=== PATIENT | female | born 1935 | race Caucasian/White ===

== ENCOUNTER 2017-07-04 15:28 | Inpatient (IN) | payer MEDICARE ==
[2017-07-04] MEDS ORDERED: RX INFO: IV CONTRAST WAS GIVEN 1 EACH MISC MISCELLANE PRN (15:58)
[2017-07-04] MEDS ORDERED: SODIUM CHLORIDE 0.9% 1,000 ML IV STA ×2 (15:58)
[2017-07-04] MEDS ORDERED: METOCLOPRAMIDE 5 MG/ML 2 ML VIAL IVP STA (15:58)
[2017-07-04] MEDS ORDERED: PANTOPRAZOLE 40 MG/10 ML VIAL IVP STA (15:58)
[2017-07-04] MEDS ORDERED: MECLIZINE 12.5 MG TAB PO STA (15:59)
--- NOTE | 2017-07-04 16:03 | ED ---
General Adult HPI - General Chief complaint: Abdominal Pain Stated complaint: Weakness Time Seen by Provider: 07/04/17 15:39 Source: patient Mode of arrival: EMS Limitations: no limitations - History of Present Illness Initial comments: 82-year-old white female presents with a complaint of some abdominal pain nausea vomiting and dizziness. She states that she's been dizzy for the past 4 + days. She has also had some bilateral lower abdominal pain. She saw her primary doctor they thought she had some fluid behind her right ear. She does complain of some slight pressure and buzzing type sensation from her right ear. She describes the dizziness as a spinning or vertiginous type sensation. She then had a flu shot yesterday at her primary care physician's office and she then developed multiple episodes of nausea and vomiting as well. She relates intermittent chest pain and shortness of breath over the past several days as well. She states that she's lost approximately 11 pounds over the past week. She denies any fevers or chills. There has not been any diarrhea. She denies any previous similar incidents. - Related Data Home Medications Medication Instructions Recorded Confirmed ALPRAZolam [Xanax] 0.25 mg PO HS 07/04/17 07/04/17 Amoxic-Pot Clav 875-125Mg 1 tab PO BID 07/04/17 07/04/17 [Augmentin 875-125] Citalopram Hydrobromide [CeleXA] 20 mg PO DAILY 07/04/17 07/04/17 Hydrochlorothiazide 12.5 mg PO DAILY 07/04/17 07/04/17 Levothyroxine Sodium [Synthroid] 25 mcg PO DAILY 07/04/17 07/04/17 Lisinopril 40 mg PO DAILY 07/04/17 07/04/17 Meloxicam [Mobic] 15 mg PO DAILY 07/04/17 07/04/17 Metoprolol Tartrate [Lopressor] 100 mg PO BID 07/04/17 07/04/17 Pantoprazole Sodium [Protonix] 40 mg PO DAILY 07/04/17 07/04/17 Potassium Chloride ER [K-Dur 20] 20 meq PO DAILY 07/04/17 07/04/17 Simvastatin [Zocor] 40 mg PO DAILY 07/04/17 07/04/17 amLODIPine [Norvasc] 5 mg PO DAILY 07/04/17 07/04/17 metFORMIN HCL [Glucophage] 500 mg PO DAILY 07/04/17 07/04/17 Allergies Allergy/AdvReac Type Severity Reaction Status Date / Time No Known Allergies Allergy Verified 07/04/17 17:33 Review of Systems ROS Statement: Those systems with pertinent positive or pertinent negative responses have been documented in the HPI. ROS Other: All systems not noted in ROS Statement are negative. Past Medical History Past Medical History: Hyperlipidemia, Hypertension, Thyroid Disorder Additional Past Medical History / Comment(s): hypothyroid, History of Any Multi-Drug Resistant Organisms: None Reported Past Surgical History: Hysterectomy Smoking Status: Never smoker General Exam - General Exam Comments Initial Comments: GENERAL: The patient is well nourished and well hydrated. VITAL SIGNS: Heart rate, blood pressure, respiratory rate reviewed as recorded in nurse's notes. EYES: Pupils are round and reactive. Extraocular movements are intact. No conjunctival / lid redness or swelling. ENT: No external evidence of injury, swelling, or ecchymosis. Airway is patent. Throat is clear. There is a slight amount of fluid present behind the right tympanic membrane. No erythema noted. The left ear is clear. NECK: Nontender. No swelling or evidence of injury. No subcutaneous emphysema. Trachea is midline. No thyroid mass. HEART: Regular rate and rhythm. Good peripheral pulses. LUNGS/CHEST: Breath sounds clear and equal bilaterally. No rales, rhonchi, or wheezes. No ecchymosis, subcutaneous emphysema, or tenderness. ABDOMEN: There is some mild tenderness present to the bilateral lower abdomen. No palpable masses or organomegaly. No peritoneal signs. No abdominal wall swelling or ecchymosis. EXTREMITIES: No extremity tenderness. Normal muscle tone and function. No thoracolumbar tenderness. NEUROLOGIC: Sensation is grossly intact. Cranial nerve exam reveals face is symmetrical, tongue is midline, speech is clear. SKIN: No abrasions or ecchymosis is noted. No induration or masses noted. PSYCHIATRIC: Alert and oriented. Appropriate behavior and judgment. Limitations: no limitations Course Vital Signs 07/04/17 07/04/17 07/04/17 15:31 16:43 18:58 Temperature 97.6 F Pulse Rate 62 59 L 53 L Respiratory 16 17 Rate Blood Pressure 89/54 98/55 108/54 O2 Sat by Pulse 95 98 95 Oximetry 07/04/17 19:29 Temperature 97.7 F Pulse Rate 58 L Respiratory 18 Rate Blood Pressure 122/57 O2 Sat by Pulse 93 L Oximetry Medical Decision Making - Medical Decision Making The patient was seen and examined. All diagnostics were reviewed. An IV is started and she does receive some Reglan intravenously. She received 4 modems of Zofran per EMS without any significant relief. She receives IV fluids as well as some Antivert and Protonix. The EKG shows a normal sinus rhythm at a rate of 67 with occasional PVC noted. The QTc interval is prolonged at 519, the QRS duration is 86, and the NC intervals 186. There is some nonspecific ST- T wave changes noted diffusely. There is no ST elevation. The patient's laboratories reviewed and does show slight degree of elevation of lactic acid, the troponin is elevated, and the potassium is low. The patient's blood pressure is decreased initially and is given some mild fluid hydration. The computed tomography scan does not show any definite acute findings. There is a possibility of colitis. Please see report for details. A chest x-ray does not show any acute process. The possibility of a non-ST elevation myocardial infarction is possible and it is felt as though she would require admission to the hospital for further treatment. She is agreeable. Case is discussed with internal medicine. - Lab Data Result diagrams: 07/04/17 16:25 07/04/17 16:25 Lab Results 07/04/17 07/04/17 07/04/17 Range/Units 16:25 16:25 16:25 WBC 5.1 (3.8-10.6) k/uL RBC 4.84 (3.80-5.40) m/uL Hgb 13.9 (11.4-16.0) gm/dL Hct 41.7 (34.0-46.0) % MCV 86.0 (80.0-100.0) fL MCH 28.7 (25.0-35.0) pg MCHC 33.3 (31.0-37.0) g/dL RDW 13.4 (11.5-15.5) % Plt Count 198 (150-450) k/uL Neutrophils % 79 % Lymphocytes % 11 % Monocytes % 7 % Eosinophils % 1 % Basophils % 0 % Neutrophils # 4.0 (1.3-7.7) k/uL Lymphocytes # 0.6 L (1.0-4.8) k/uL Monocytes # 0.4 (0-1.0) k/uL Eosinophils # 0.1 (0-0.7) k/uL Basophils # 0.0 (0-0.2) k/uL PT (9.0-12.0) sec INR (<1.2) APTT (22.0-30.0) sec Sodium 133 L (137-145) mmol/L Potassium 3.0 L* (3.5-5.1) mmol/L Chloride 88 L (98-107) mmol/L Carbon Dioxide 31 H (22-30) mmol/L Anion Gap 14 mmol/L BUN 42 H (7-17) mg/dL Creatinine 1.70 H (0.52-1.04) mg/dL Est GFR (MDRD) Af Amer 35 (>60 ml/min/1.73 sqM) Est GFR (MDRD) Non-Af 29 (>60 ml/min/1.73 sqM) Glucose 123 H (74-99) mg/dL Plasma Lactic Acid Stephen (0.7-2.0) mmol/L Calcium 9.4 (8.4-10.2) mg/dL Total Bilirubin 1.0 (0.2-1.3) mg/dL AST 67 H (14-36) U/L ALT 52 (9-52) U/L Alkaline Phosphatase 51 (38-126) U/L Total Creatine Kinase 56 (30-135) U/L CK-MB (CK-2) 0.3 (0.0-2.4) ng/mL CK-MB (CK-2) Rel Index 0.5 Troponin I 0.061 H* (0.000-0.034) ng/mL Total Protein 6.6 (6.3-8.2) g/dL Albumin 3.9 (3.5-5.0) g/dL Amylase <30 L (30-110) U/L Lipase 73 (23-300) U/L 07/04/17 07/04/17 Range/Units 16:25 17:36 WBC (3.8-10.6) k/uL RBC (3.80-5.40) m/uL Hgb (11.4-16.0) gm/dL Hct (34.0-46.0) % MCV (80.0-100.0) fL MCH (25.0-35.0) pg MCHC (31.0-37.0) g/dL RDW (11.5-15.5) % Plt Count (150-450) k/uL Neutrophils % % Lymphocytes % % Monocytes % % Eosinophils % % Basophils % % Neutrophils # (1.3-7.7) k/uL Lymphocytes # (1.0-4.8) k/uL Monocytes # (0-1.0) k/uL Eosinophils # (0-0.7) k/uL Basophils # (0-0.2) k/uL PT 12.7 H (9.0-12.0) sec INR 1.3 H (<1.2) APTT 24.5 (22.0-30.0) sec Sodium (137-145) mmol/L Potassium (3.5-5.1) mmol/L Chloride (98-107) mmol/L Carbon Dioxide (22-30) mmol/L Anion Gap mmol/L BUN (7-17) mg/dL Creatinine (0.52-1.04) mg/dL Est GFR (MDRD) Af Amer (>60 ml/min/1.73 sqM) Est GFR (MDRD) Non-Af (>60 ml/min/1.73 sqM) Glucose (74-99) mg/dL Plasma Lactic Acid Stephen 3.1 H* (0.7-2.0) mmol/L Calcium (8.4-10.2) mg/dL Total Bilirubin (0.2-1.3) mg/dL AST (14-36) U/L ALT (9-52) U/L Alkaline Phosphatase (38-126) U/L Total Creatine Kinase (30-135) U/L CK-MB (CK-2) (0.0-2.4) ng/mL CK-MB (CK-2) Rel Index Troponin I (0.000-0.034) ng/mL Total Protein (6.3-8.2) g/dL Albumin (3.5-5.0) g/dL Amylase (30-110) U/L Lipase (23-300) U/L Disposition Clinical Impression: Vertigo, Abdominal pain, Nausea and vomiting, Hypotension, Chest pain, Dyspnea , Lactic acidosis, Hypokalemia, Elevated troponin, NSTEMI (non-ST elevated myocardial infarction), Colitis, Right otitis media Disposition: ADMITTED IP TO THIS HOSP Condition: Fair Time of Disposition: 19:38 Decision Date: 07/04/17 Decision Time: 19:38
[2017-07-04 16:36] LABS: Basophils % (A) 0 %; CH 29.1; Eosinophils # (A) 0.1 k/uL (0-0.7); Eosinophils % (A) 1 %; HCT 41.7 % (34.0-46.0); HDW 2.58; HGB 13.9 gm/dL (11.4-16.0); Luc % (Auto) 2; Lymphocytes # (A) 0.6 k/uL (1.0-4.8); Lymphocytes % (A) 11 %; MCH 28.7 pg (25.0-35.0); MCHC 33.3 g/dL (31.0-37.0); Mean Platelet Volume 7.5; Monocytes # (A) 0.4 k/uL (0-1.0); Monocytes % (A) 7 %; Neutrophils % (A) 79 %; RBC 4.84 m/uL (3.80-5.40); RDW 13.4 % (11.5-15.5); WBC 5.1 k/uL (3.8-10.6); WBC (Perox) 5.13
[2017-07-04 16:47] LABS: ALT 52 U/L (9-52); AST 67 U/L (14-36); Alkaline Phosphatase 51 U/L (38-126); Amylase <30 U/L (30-110); Anion Gap 14 mmol/L; Blood Urea Nitrogen 42 mg/dL (7-17); Calcium 9.4 mg/dL (8.4-10.2); Carbon Dioxide 31 mmol/L (22-30); Chloride 88 mmol/L (98-107); Glucose 123 mg/dL (74-99); Non-African American GFR(MDRD) 29 (>60 ml/min/1.73 sqM); Sodium 133 mmol/L (137-145); Total Protein 6.6 g/dL (6.3-8.2)
[2017-07-04 17:10] LABS: Creatine Kinase MB 0.3 ng/mL (0.0-2.4)
[2017-07-04 17:16] LABS: Troponin I 0.061 ng/mL (0.000-0.034)
[2017-07-04] MEDS ORDERED: ASPIRIN 81 MG PO STA (17:25)
[2017-07-04] MEDS ORDERED: NITROGLYCERIN OINT 1 INCH/GM PACKET TOPICAL STA (17:25)
[2017-07-04] MEDS ORDERED: POTASSIUM CHLORIDE ER 20 MEQ TAB.ER PO STA (17:26)
[2017-07-04 17:56] LABS: INR 1.3 (<1.2)
[2017-07-04 17:57] LABS: Partial Thromboplastin Time 24.5 sec (22.0-30.0); Prothrombin Time 12.7 sec (9.0-12.0)
--- NOTE | 2017-07-04 18:00 | CT ---
EXAMINATION TYPE: CT abdomen pelvis wo con DATE OF EXAM: 07/04/2017 COMPARISON: NONE HISTORY: Low pelvic pain CT DLP: 454.70 mGycm Automated exposure control for dose reduction was used. TECHNIQUE: Helical acquisition of images from the lung bases through the pelvis. FINDINGS: Lack of intravenous contrast could compromise sensitivity LUNG BASES: No significant abnormality is appreciated. AORTA: No significant abnormality is appreciated. LIVER/GB: Gallbladder is absent. Liver shows no mass. Bile ducts likely prominent due to postcholecys tectomy change, correlate PANCREAS: Fatty replaced. SPLEEN: No significant abnormality is seen. ADRENALS: No significant abnormality is seen. KIDNEYS: No significant abnormality is seen. REPRODUCTIVE ORGANS: Absent URINARY BLADDER: Urinary bladder is collapsed, there may be wall thickening BOWEL: Difficult to exclude some colonic wall thickening on this noncontrast exam. FREE AIR: No Free Air is visible. ASCITES: None visible. PELVIC ADENOPATHY: None visualized. RETROPERITONEAL ADENOPATHY: No Retroperitoneal Adenopathy visible. OSSEOUS STRUCTURES: Degenerative disc changes are present. IMPRESSION: NONCONTRAST EXAM MAY LIMIT SENSITIVITY. THERE MAY BE MUSCULAR HYPERTROPHY WITHIN THE COLON, DIFFICULT TO EXCLUDE A MUCOSAL LESION, COLITIS. POSTOP CHANGES. FOLLOW-UP INDICATED.
--- NOTE | 2017-07-04 18:49 | XR ---
EXAMINATION TYPE: XR chest 2V DATE OF EXAM: 07/04/2017 COMPARISON: NONE HISTORY: Chest pain, nausea and vomiting TECHNIQUE: Frontal and lateral views of the chest are obtained. FINDINGS: There is no focal air space opacity, pleural effusion, or pneumothorax seen. The cardiac silhouette size is within normal limits. The osseous structures are intact. IMPRESSION: No acute cardiopulmonary process.
[2017-07-04] MEDS ORDERED: NITROGLYCERIN SL TABS 0.4 MG TAB SUBLINGUAL PRN (19:31)
[2017-07-04] MEDS ORDERED: HEPARIN SODIUM,PORCINE 5,000 UNIT/ML 1 ML VIAL IV PRN (19:31)
[2017-07-04] MEDS ORDERED: HEPARIN SODIUM,PORCINE 5,000 UNIT/ML 1 ML VIAL IV ONE (19:31)
[2017-07-04] MEDS ORDERED: DICYCLOMINE 20 MG TAB PO PRN (19:35)
[2017-07-04] MEDS ORDERED: MECLIZINE 25 MG TAB PO PRN (19:35)
[2017-07-04] MEDS ORDERED: HEPARIN SODIUM,PORCINE/D5W PMX 25,000 UNIT in DEXTROSE/WATER 1 500ML.BAG IV SCH (19:45)
[2017-07-04 19:59] LABS: Amorphous Sediment,Urine Rare /hpf; Appearance,Urine Cloudy (Clear); Bacteria,Urine Occasional /hpf; Bilirubin,Urine 1+ (Negative); Glucose,Urine (UA) Negative (Negative); Ketones,Urine Negative (Negative); Leukocyte Esterase,Urine Large (Negative); Mucus,Urine Rare /hpf; Nitrite,Urine Negative (Negative); Particle Count 13904; Protein,Urine 1+ (Negative); RBC,Urine 4 /hpf (0-5); Specific Gravity,Urine 1.015 (1.001-1.035); Squamous Epithelial Cell,Urine 10 /hpf (0-4); UA Billing (MACRO vs. MICRO) MICRO; WBC,Urine 41 /hpf (0-5)
[2017-07-04] MEDS ORDERED: AMOXIC-POT CLAV 875-125MG 1 EACH TAB PO SCH (21:00)
[2017-07-04] MEDS: METOPROLOL TARTRATE 50 MG TAB PO SCH (22:02)
[2017-07-04] MEDS: ALPRAZolam 0.25 MG TAB PO SCH (22:02)
[2017-07-04 22:21] VITALS: BMI 31.1
[2017-07-04 23:32] LABS: Creatine Kinase MB 0.7 ng/mL (0.0-2.4)
[2017-07-04 23:39] LABS: Troponin I 0.038 ng/mL (0.000-0.034)
[2017-07-05] MEDS: NITROGLYCERIN OINT 1 INCH/GM PACKET TOPICAL SCH ×2 (00:14→06:05)
[2017-07-05 00:30] VITALS: RESP 18
[2017-07-05 03:42] LABS: Creatine Kinase MB 0.5 ng/mL (0.0-2.4)
[2017-07-05 04:35] LABS: Basophils % (A) 1 %; CH 28.7; CHCM 32.7; Eosinophils # (A) 0.1 k/uL (0-0.7); Eosinophils % (A) 4 %; HCT 34.6 % (34.0-46.0); HDW 2.55; HGB 11.2 gm/dL (11.4-16.0); Luc # (Auto) 0.12; Luc % (Auto) 4; Lymphocytes # (A) 0.9 k/uL (1.0-4.8); Lymphocytes % (A) 26 %; MCH 28.4 pg (25.0-35.0); MCHC 32.3 g/dL (31.0-37.0); MCV 88.1 fL (80.0-100.0); Mean Platelet Volume 8.1; Monocytes # (A) 0.4 k/uL (0-1.0); Monocytes % (A) 12 %; Neutrophils # (A) 1.8 k/uL (1.3-7.7); Neutrophils % (A) 54 %; RBC 3.93 m/uL (3.80-5.40); RDW 13.5 % (11.5-15.5); WBC 3.4 k/uL (3.8-10.6); WBC (Perox) 3.53
[2017-07-05 05:21] LABS: Calcium 8.2 mg/dL (8.4-10.2); Potassium 3.2 mmol/L (3.5-5.1)
[2017-07-05 05:22] LABS: Troponin I 0.039 ng/mL (0.000-0.034)
[2017-07-05] MEDS: PANTOPRAZOLE 40 MG TABLET PO SCH (06:05)
[2017-07-05] MEDS: LEVOTHYROXINE 25 MCG TAB PO SCH (06:05)
[2017-07-05] MEDS: CITALOPRAM HYDROBROMIDE 20 MG TAB PO SCH (08:19)
[2017-07-05] MEDS: METOPROLOL TARTRATE 50 MG TAB PO SCH ×2 (08:19→20:54)
[2017-07-05] MEDS: amLODIPine 5 MG TAB PO SCH (08:19)
[2017-07-05] MEDS: POTASSIUM CHLORIDE ER 20 MEQ TAB.ER PO SCH (08:19)
[2017-07-05] MEDS: ATORVASTATIN 20 MG TAB PO SCH (08:20)
[2017-07-05] MEDS ORDERED: HYDROCHLOROTHIAZIDE 12.5 MG CAP PO SCH (09:00)
[2017-07-05] MEDS ORDERED: MELOXICAM 7.5 MG TAB PO SCH (09:00)
[2017-07-05] MEDS ORDERED: LISINOPRIL 20 MG TAB PO SCH (09:00)
[2017-07-05] MEDS ORDERED: ASPIRIN 325 MG TAB PO SCH (09:00)
[2017-07-05] MEDS ORDERED: metFORMIN 500 MG TAB PO SCH (09:00)
--- NOTE | 2017-07-05 12:02 | P.CRDCN ---
History of Present Illness Consult date: 07/05/17 Requesting physician: Sukhjinder Mera Reason for Consult (text): Abnormal troponins Chief complaint: Dizziness, nausea and vomiting History of present illness: This is a pleasant 82-year-old female who resides in [place], she is currently visiting with her daughter here. She presents to the hospital with symptoms of dizziness as well as nausea and vomiting. According to the patient for the past 3 or 4 days she has noticed herself to be extremely dizzy, she states that she developed an upper respiratory infection and felt quite stuffy in her sinuses as well as her ears. She did go to see her primary doctor, who felt that the dizziness may be secondary to sinus infection and she was initiated on antibiotics. Patient also was given the flu shot in her office. Patient does state that she felt a pressure sensation in her ear. When the patient's gets dizzy she states that she feels as though everything is spinning , and dizziness worsens when she turns her head too quickly. She also states that at the time of her dizziness, she feels that her heart is pounding extremely fast. Patient went home following this, she states that she ate some peach cobbler and shortly thereafter went to lie down, just prior to lying down patient became extremely nauseated and then had several episodes of vomiting. For this reason she came to the emergency room for further evaluation. Patient does state that approximately one week ago she had an episode of an ache in her chest which lasted seconds and dissipated. She does admit to having a cardiac catheterization performed in the past, in [place], she states that this was several years ago, she was reported at that time to have normal coronary arteries with a thickened heart muscle. Patient also states that she's lost a significant amount of weight over the past couple of weeks since she was started on metformin. EKG performed on admission here shows a normal sinus rhythm with occasional PVC and nonspecific ST-T wave changes. Inferior Q waves noted. At scan of the abdomen and pelvis suggest difficulty to exclude a mucosal lesion, colitis. Chest x-ray does not reveal any acute cardiopulmonary process. White blood cell count on admission 5.1, 3.4 this morning. Platelet count 198, 141 this morning. Potassium on arrival 3.0, 3.2 this morning. BUN on arrival 42 creatinine 1.7, 42 and 2.0 this morning. Troponins 0.06, 0.038, 0.039. At the time of my examination this morning, patient denies any further nausea, no episodes of dizziness no chest discomfort. Blood pressure this morning 113/40 with a heart rate in the 50s. 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 History of Any Multi-Drug Resistant Organisms: None Reported Past Surgical History: Back Surgery, Hysterectomy Past Psychological History: No Psychological Hx Reported Smoking Status: Never smoker Medications and Allergies Home Medications Medication Instructions Recorded Confirmed Type ALPRAZolam [Xanax] 0.25 mg PO HS 07/04/17 07/04/17 History Amoxic-Pot Clav 875-125Mg 1 tab PO BID 07/04/17 07/04/17 History [Augmentin 875-125] Citalopram Hydrobromide [CeleXA] 20 mg PO DAILY 07/04/17 07/04/17 History Hydrochlorothiazide 12.5 mg PO DAILY 07/04/17 07/04/17 History Levothyroxine Sodium [Synthroid] 25 mcg PO DAILY 07/04/17 07/04/17 History Lisinopril 40 mg PO DAILY 07/04/17 07/04/17 History Meloxicam [Mobic] 15 mg PO DAILY 07/04/17 07/04/17 History Metoprolol Tartrate [Lopressor] 100 mg PO BID 07/04/17 07/04/17 History Pantoprazole Sodium [Protonix] 40 mg PO DAILY 07/04/17 07/04/17 History Potassium Chloride ER [K-Dur 20] 20 meq PO DAILY 07/04/17 07/04/17 History Simvastatin [Zocor] 40 mg PO DAILY 07/04/17 07/04/17 History amLODIPine [Norvasc] 5 mg PO DAILY 07/04/17 07/04/17 History metFORMIN HCL [Glucophage] 500 mg PO DAILY 07/04/17 07/04/17 History Allergies Allergy/AdvReac Type Severity Reaction Status Date / Time No Known Allergies Allergy Verified 07/04/17 17:33 Physical Exam Vitals: Vital Signs Temp Pulse Pulse Resp BP BP Pulse Ox 07/05/17 08:00 97.7 F 55 L 18 113/48 90 L 07/05/17 04:00 97.2 F L 55 L 18 115/57 99 07/05/17 00:00 97.0 F L 58 L 18 107/40 99 07/04/17 22:00 60 17 07/04/17 21:27 97.6 F 60 17 94/48 97 07/04/17 21:25 96.8 F L 60 18 104/69 98 07/04/17 20:27 58 L 17 111/57 99 07/04/17 19:29 97.7 F 58 L 18 122/57 93 L 07/04/17 18:58 53 L 17 108/54 95 07/04/17 16:43 59 L 16 98/55 98 07/04/17 15:31 97.6 F 62 16 89/54 95 Intake and Output 07/04/17 07/05/17 07/05/17 22:59 06:59 14:59 Intake Total 900 Balance 900 Intake: Intake, IV Titration 900 Amount Sodium Chloride 0.9% 1, 800 000 ml @ 100 mls/hr IV . Q10H [facility] Rx#:[id number] cefTRIAXone 1,000 mg In 100 Sodium Chloride 0.9% 50 ml @ 100 mls/hr IVPB Q24H [facility] Rx#:[id number] Other: Voiding Method Toilet Toilet Toilet Weight 77.111 kg 79.3 kg PHYSICAL EXAMINATION: HEENT: Head is atraumatic, normocephalic. Pupils equal, round. Neck is supple. There is no elevated jugular venous pressure. HEART EXAMINATION: Heart S1 and S2 with systolic murmur is heard. CHEST EXAMINATION: Lungs are clear to auscultation and precussion. No chest wall tenderness is noted on palpation or with deep breathing. ABDOMEN: Soft, nontender. Bowel sounds are heard. No organomegaly noted. EXTREMITIES: 2+ peripheral pulses with no evidence of peripheral edema and no calf tenderness noted. NEUROLOGIC patient is awake, alert and oriented -3. . Results 07/05/17 02:27 07/05/17 02:27 Cardiac Enzymes 07/04/17 07/04/17 07/04/17 Range/Units 16:25 16:25 22:38 AST 67 H (14-36) U/L CK-MB (CK-2) 0.3 0.7 (0.0-2.4) ng/mL Troponin I 0.061 H* 0.038 H* (0.000-0.034) ng/mL 07/05/17 Range/Units 02:27 AST (14-36) U/L CK-MB (CK-2) 0.5 (0.0-2.4) ng/mL Troponin I 0.039 H* (0.000-0.034) ng/mL Coagulation 07/04/17 07/05/17 Range/Units 17:36 02:27 PT 12.7 H (9.0-12.0) sec APTT 24.5 65.4 H (22.0-30.0) sec Lipids 07/05/17 Range/Units 02:27 Triglycerides 101 (<150) mg/dL Cholesterol 109 (<200) mg/dL HDL Cholesterol 41 (40-60) mg/dL CBC 07/04/17 07/05/17 Range/Units 16:25 02:27 WBC 5.1 3.4 L (3.8-10.6) k/uL RBC 4.84 3.93 (3.80-5.40) m/uL Hgb 13.9 11.2 L (11.4-16.0) gm/dL Hct 41.7 34.6 (34.0-46.0) % Plt Count 198 141 L (150-450) k/uL Comprehensive Metabolic Panel 07/04/17 07/05/17 Range/Units 16:25 02:27 Sodium 133 L 132 L (137-145) mmol/L Potassium 3.0 L* 3.2 L (3.5-5.1) mmol/L Chloride 88 L 93 L (98-107) mmol/L Carbon Dioxide 31 H 30 (22-30) mmol/L BUN 42 H 42 H (7-17) mg/dL Creatinine 1.70 H 2.10 H (0.52-1.04) mg/dL Glucose 123 H 117 H (74-99) mg/dL Calcium 9.4 8.2 L (8.4-10.2) mg/dL AST 67 H (14-36) U/L ALT 52 (9-52) U/L Alkaline Phosphatase 51 (38-126) U/L Total Protein 6.6 (6.3-8.2) g/dL Albumin 3.9 (3.5-5.0) g/dL Current Medications Generic Name Dose Route Start Last Admin Trade Name Freq PRN Reason Stop Dose Admin Alprazolam 0.25 mg 07/04/17 21:00 07/04/17 22:02 Xanax PO 0.25 mg HS RADHA Administration Amlodipine Besylate 5 mg 07/05/17 09:00 07/05/17 08:19 Norvasc PO 5 mg DAILY [facility] Administration Aspirin 325 mg 07/05/17 09:00 07/05/17 08:19 Aspirin PO 325 mg DAILY [facility] Administration Atorvastatin Calcium 20 mg 07/05/17 09:00 07/05/17 08:20 Lipitor PO 20 mg DAILY [facility] Administration Citalopram Hydrobromide 20 mg 07/05/17 09:00 07/05/17 08:19 Celexa PO 20 mg DAILY [facility] Administration Dicyclomine HCl 20 mg 07/04/17 19:35 Bentyl PO Q6H PRN abd pain Heparin Sodium (Porcine) 0 unit 07/04/17 19:31 Heparin IV Q6HR PRN Low PTT Protocol Heparin Sodium/Dextrose 25,000 500 mls @ 18.5 mls/hr 07/04/17 19:45 07/04/17 20:24 unit/ IV Solution IV 12 units/kg/hr .Q24H RADHA 18.5 mls/hr Protocol Administration 12 UNITS/KG/HR Ceftriaxone Sodium 1,000 mg/ 50 mls @ 100 mls/hr 07/05/17 01:00 07/05/17 01: 04 Sodium Chloride IVPB 100 mls/hr Q24H [facility] Administration Levothyroxine Sodium 25 mcg 07/05/17 06:30 07/05/17 06:05 Synthroid PO 25 mcg DAILY@0630 [facility] Administration Meclizine HCl 25 mg 07/04/17 19:35 Antivert PO Q6H PRN dizziness Meloxicam 15 mg 07/05/17 09:00 07/05/17 08:19 Mobic PO 15 mg DAILY [facility] Administration Metoprolol Tartrate 100 mg 07/04/17 21:00 07/05/17 08:19 Lopressor PO 100 mg BID [facility] Administration Miscellaneous Information 1 each 07/04/17 15:58 07/04/17 19:28 Rx Info: Iv Contrast Was Given MISCELLANE 07/06/17 15:58 1 each DAILY PRN Administration Per Protocol Nitroglycerin 1 inch 07/05/17 00:00 07/05/17 06:05 Nitro-Bid Oint TOPICAL Not Given Q6HR [facility] Nitroglycerin 0.4 mg 07/04/17 19:31 Nitrostat SUBLINGUAL Q5M PRN Chest Pain Pantoprazole Sodium 40 mg 07/05/17 06:30 07/05/17 06:05 Protonix PO 40 mg DAILY@0630 RADHA Administration Potassium Chloride 20 meq 07/05/17 09:00 07/05/17 08:19 K-Dur 20 PO 20 meq DAILY RADHA Administration Intake and Output 07/04/17 07/05/17 07/05/17 22:59 06:59 14:59 Intake Total 900 Balance 900 Intake: Intake, IV Titration 900 Amount Sodium Chloride 0.9% 1, 800 000 ml @ 100 mls/hr IV . Q10H [facility] Rx#:[id number] cefTRIAXone 1,000 mg In 100 Sodium Chloride 0.9% 50 ml @ 100 mls/hr IVPB Q24H [facility] Rx#:[id number] Other: Voiding Method Toilet Toilet Toilet Weight 77.111 kg 79.3 kg 07/05/17 02:27 07/05/17 02:27 EKG Interpretations (text) EKG shows normal sinus rhythm with nonspecific ST-T wave changes, occasional PVCs and inferior Q waves. Assessment and Plan Plan: Assessment and plan #1 symptoms of dizziness, suggestive of vertigo. Positive for sinus infection on antibiotics. #2 nausea and vomiting, could be secondary to Augmentin. CT of the abdomen nonspecific findings. #3 abnormal BUN and creatinine, likely secondary to dehydration. Creatinine 2.1. She did receive fluid bolus as well as IV fluids at a lower. #4 hypokalemia, likely secondary to nausea and vomiting. #5 abnormal troponins, likely secondary to hypotension and lactic acidosis. #6 elevated lactic acid, likely secondary to hypotension and hypoperfusion. #7 hypotension on admission, likely secondary to dehydration. Blood pressure this morning 114/60 with a heart rate in the 50s. #8 hypothyroidism Plan We will discontinue the IV heparin, discontinue Nitropaste. Decrease aspirin to 81 mg daily. Discontinue Mobic. Encourage oral fluids. Replace potassium. Obtain echocardiogram with Doppler study. Further recommendations to follow. DNP note has been reviewed, I agree with a documented findings and plan of care. Patient was seen and examined.
--- NOTE | 2017-07-05 12:57 | ECHOF ---
Referral Reason:cp MEASUREMENTS -------- HEIGHT: 157.5 cm WEIGHT: 78.9 kg BP: 115/57 RVIDd: 3.0 cm (< 3.3) IVSd: 1.4 cm (0.6 - 1.1) LVIDd: 4.1 cm (3.9 - 5.3) LVPWd: 1.3 cm (0.6 - 1.1) IVSs: 1.8 cm LVIDs: 2.9 cm LVPWs: 1.8 cm LA Diam: 3.3 cm (2.7 - 3.8) LAESV Index (A-L): 24.99 ml/m Ao Diam: 3.1 cm (2.0 - 3.7) AV Cusp: 2.1 cm (1.5 - 2.6) MV EXCURSION: 12.690 mm (> 18.000) MV EF SLOPE: 65 mm/s (70 - 150) EPSS: 0.3 cm MV E Cruzito: 0.77 m/s MV DecT: 310 ms MV A Cruz[place]: 1.07 m/s MV E/A Ratio: 0.72 RAP: 5.00 mmHg RVSP: 30.01 mmHg FINDINGS -------- Sinus rhythm with extra systolic beats. This was a technically good study. The left ventricular size is normal. There is moderate concentric left ventricular hypertrophy. Overall left ventricular systolic function is normal with, an EF between 60 - 65 %. The right ventricle is normal in size. Normal LA size by volume 22+/-6 ml/m2. The right atrium is normal in size. Aortic valve is trileaflet and is mildly thickened. The mitral valve is normal. Mild tricuspid regurgitation present. Right ventricular systolic pressure is normal at < 35 mmHg. There is no pulmonic regurgitation present. The aortic root size is normal. Normal inferior vena cava with normal inspiratory collapse consistent with estimated right atrial pressure of 5 mmHg. There is no pericardial effusion. CONCLUSIONS -------- 1. Sinus rhythm with extra systolic beats. 2. The mitral valve is normal. 3. Mild tricuspid regurgitation present. 4. Right ventricular systolic pressure is normal at < 35 mmHg. 5. There is no pulmonic regurgitation present. 6. The aortic root size is normal. 7. Normal inferior vena cava with normal inspiratory collapse consistent with estimated right atrial pressure of 5 mmHg. 8. There is no pericardial effusion. 9. This was a technically good study. 10. The left ventricular size is normal. 11. There is moderate concentric left ventricular hypertrophy. 12. Overall left ventricular systolic function is normal with, an EF between 60 - 65 %. 13. The right ventricle is normal in size. 14. Normal LA size by volume 22+/-6 ml/m2. 15. The right atrium is normal in size. 16. Aortic valve is trileaflet and is mildly thickened. LAY MIDWIFE: An Pham RDCS
[2017-07-05] MEDS: ALPRAZolam 0.25 MG TAB PO SCH (20:54)
--- NOTE | 2017-07-05 22:23 | P.HPIM ---
History of Present Illness H&P Date: 07/05/17 Chief Complaint: Nausea and vomiting and chest discomfort 82-year-old white female with a known history of hypertension, diabetes type 2 and hypothyroidism presents with a complaint of some abdominal pain nausea vomiting and dizziness. She states that she's been dizzy for the past 4+ days. She has also had some bilateral lower abdominal pain. She saw her primary doctor due to right ear fullness and was prescribed Augmentin. She does complain of some slight pressure and buzzing type sensation from her right ear. She describes the dizziness as a spinning or vertiginous type sensation. She then had a flu shot yesterday at her primary care physician's office and she then developed multiple episodes of nausea and vomiting as well. She relates intermittent chest pain and shortness of breath over the past several days as well. She states that she's lost approximately 11 pounds over the past week. She denies any fevers or chills. There has not been any diarrhea. She denies any previous similar incidents. Patient had CT abdomen and pelvis showed nonspecific mucosal thickness. Chest x-ray showed no acute coronary process. Patient was found to have electrolyte abnormalities. Troponin leak at 0.038 Review of Systems Constitutional: Patient denies any fever or chills . Positive generalized weakness and weight loss. Patient feels tired Abdomen: Patient does have nausea vomiting and abdominal pain. Cardiovascular: Chest pressure. No short of breath no palpitations. Respiratory: patient denied any cough is from production. No shortness of breath Neurologic: Patient denied any numbness or tingling headache. Musculoskeletal: Patient denies any complaints of joint swelling or deformity. Skin: Negative Psychiatric: Negative Endocrine: No heat or cold intolerance. No recent weight gain. Genitourinary: No dysuria or hematuria. 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 History of Any Multi-Drug Resistant Organisms: None Reported Past Surgical History: Back Surgery, Hysterectomy Past Psychological History: No Psychological Hx Reported Smoking Status: Never smoker Medications and Allergies Home Medications Medication Instructions Recorded Confirmed Type ALPRAZolam [Xanax] 0.25 mg PO HS 07/04/17 07/04/17 History Amoxic-Pot Clav 875-125Mg 1 tab PO BID 07/04/17 07/04/17 History [Augmentin 871-125] Citalopram Hydrobromide [CeleXA] 20 mg PO DAILY 07/04/17 07/04/17 History Hydrochlorothiazide 12.5 mg PO DAILY 07/04/17 07/04/17 History Levothyroxine Sodium [Synthroid] 25 mcg PO DAILY 07/04/17 07/04/17 History Lisinopril 40 mg PO DAILY 07/04/17 07/04/17 History Meloxicam [Mobic] 15 mg PO DAILY 07/04/17 07/04/17 History Metoprolol Tartrate [Lopressor] 100 mg PO BID 07/04/17 07/04/17 History Pantoprazole Sodium [Protonix] 40 mg PO DAILY 07/04/17 07/04/17 History Potassium Chloride ER [K-Dur 20] 20 meq PO DAILY 07/04/17 07/04/17 History Simvastatin [Zocor] 40 mg PO HS 07/04/17 07/05/17 History amLODIPine [Norvasc] 5 mg PO DAILY 07/04/17 07/04/17 History metFORMIN HCL [Glucophage] 500 mg PO DAILY 07/04/17 07/04/17 History Allergies Allergy/AdvReac Type Severity Reaction Status Date / Time No Known Allergies Allergy Verified 07/04/17 17:33 Physical Exam Vitals: Vital Signs Temp Pulse Pulse Resp BP BP Pulse Ox 07/05/17 12:00 97.0 F L 54 L 18 140/68 97 07/05/17 08:00 97.7 F 55 L 18 113/48 90 L 07/05/17 04:00 97.2 F L 55 L 18 115/57 99 07/05/17 00:00 97.0 F L 58 L 18 107/40 99 07/04/17 22:00 60 17 07/04/17 21:27 97.6 F 60 17 94/48 97 07/04/17 21:25 96.8 F L 60 18 104/69 98 07/04/17 20:27 58 L 17 111/57 99 07/04/17 19:29 97.7 F 58 L 18 122/57 93 L 07/04/17 18:58 53 L 17 108/54 95 07/04/17 16:43 59 L 16 98/55 98 07/04/17 15:31 97.6 F 62 16 89/54 95 Intake and Output 07/04/17 07/05/17 07/05/17 22:59 06:59 14:59 Intake Total 900 Balance 900 Intake: Intake, IV Titration 900 Amount Sodium Chloride 0.9% 1, 800 000 ml @ 100 mls/hr IV . Q10H [facility] Rx#:[id number] cefTRIAXone 1,000 mg In 100 Sodium Chloride 0.9% 50 ml @ 100 mls/hr IVPB Q24H [facility] Rx#:[id number] Other: Voiding Method Toilet Toilet Toilet Weight 77.111 kg 79.3 kg PHYSICAL EXAMINATION: Patient is lying in the bed comfortably, no acute distress, awake alert and oriented.. HEENT: Normocephalic. Neck is supple. Pupils reactive. Nostrils clear. Oral cavity is moist. Ears reveal no drainage. Neck reveals no JVD, carotid bruits, or thyromegaly. CHEST EXAMINATION: Trachea is central. Symmetrical expansion. Lung kyle clear to auscultation and percussion. CARDIAC: Normal S1, S2 with no gallops. No murmurs ABDOMEN: Soft. Bowel sounds normal. No organomegaly. No abdominal bruits. Extremities: reveal no edema. No clubbing or cyanosis Neurologically awake, alert, oriented x3 with well-coordinated movements. No focal deficits noted Skin: No rash or skin lesions. Psychiatric: Operative. Nonsuicidal Musculoskeletal: No joint swelling or deformity. Normal range of motion. Results CBC & Chem 7: 07/05/17 02:27 07/05/17 02:27 Labs: Abnormal Lab Results - Last 24 Hours (Table) 07/04/17 07/04/17 07/04/17 Range/Units 16:25 16:25 16:25 WBC (3.8-10.6) k/uL Hgb (11.4-16.0) gm/dL Plt Count (150-450) k/uL Lymphocytes # 0.6 L (1.0-4.8) k/uL PT (9.0-12.0) sec INR (<1.2) APTT (22.0-30.0) sec Sodium 133 L (137-145) mmol/L Potassium 3.0 L* (3.5-5.1) mmol/L Chloride 88 L (98-107) mmol/L Carbon Dioxide 31 H (22-30) mmol/L BUN 42 H (7-17) mg/dL Creatinine 1.70 H (0.52-1.04) mg/dL Glucose 123 H (74-99) mg/dL Plasma Lactic Acid Stephen (0.7-2.0) mmol/L Calcium (8.4-10.2) mg/dL AST 67 H (14-36) U/L Troponin I 0.061 H* (0.000-0.034) ng/mL Amylase <30 L (30-110) U/L Urine Appearance (Clear) Urine Protein (Negative) Urine Bilirubin (Negative) Ur Leukocyte Esterase (Negative) Urine WBC (0-5) /hpf Ur Squamous Epith Cells (0-4) /hpf Amorphous Sediment (None) /hpf Urine Bacteria (None) /hpf Hyaline Casts (0-2) /lpf Urine Mucus (None) /hpf 07/04/17 07/04/17 07/04/17 Range/Units 16:25 17:36 19:44 WBC (3.8-10.6) k/uL Hgb (11.4-16.0) gm/dL Plt Count (150-450) k/uL Lymphocytes # (1.0-4.8) k/uL PT 12.7 H (9.0-12.0) sec INR 1.3 H (<1.2) APTT (22.0-30.0) sec Sodium (137-145) mmol/L Potassium (3.5-5.1) mmol/L Chloride (98-107) mmol/L Carbon Dioxide (22-30) mmol/L BUN (7-17) mg/dL Creatinine (0.52-1.04) mg/dL Glucose (74-99) mg/dL Plasma Lactic Acid Stephen 3.1 H* (0.7-2.0) mmol/L Calcium (8.4-10.2) mg/dL AST (14-36) U/L Troponin I (0.000-0.034) ng/mL Amylase (30-110) U/L Urine Appearance Cloudy H (Clear) Urine Protein 1+ H (Negative) Urine Bilirubin 1+ H (Negative) Ur Leukocyte Esterase Large H (Negative) Urine WBC 41 H (0-5) /hpf Ur Squamous Epith Cells 10 H (0-4) /hpf Amorphous Sediment Rare H (None) /hpf Urine Bacteria Occasional H (None) /hpf Hyaline Casts 331 H (0-2) /lpf Urine Mucus Rare H (None) /hpf 07/04/17 07/05/17 07/05/17 Range/Units 22:38 02:27 02:27 WBC 3.4 L (3.8-10.6) k/uL Hgb 11.2 L (11.4-16.0) gm/dL Plt Count 141 L (150-450) k/uL Lymphocytes # 0.9 L (1.0-4.8) k/uL PT (9.0-12.0) sec INR (<1.2) APTT (22.0-30.0) sec Sodium (137-145) mmol/L Potassium (3.5-5.1) mmol/L Chloride (98-107) mmol/L Carbon Dioxide (22-30) mmol/L BUN (7-17) mg/dL Creatinine (0.52-1.04) mg/dL Glucose (74-99) mg/dL Plasma Lactic Acid Stephen (0.7-2.0) mmol/L Calcium (8.4-10.2) mg/dL AST (14-36) U/L Troponin I 0.038 H* 0.039 H* (0.000-0.034) ng/mL Amylase (30-110) U/L Urine Appearance (Clear) Urine Protein (Negative) Urine Bilirubin (Negative) Ur Leukocyte Esterase (Negative) Urine WBC (0-5) /hpf Ur Squamous Epith Cells (0-4) /hpf Amorphous Sediment (None) /hpf Urine Bacteria (None) /hpf Hyaline Casts (0-2) /lpf Urine Mucus (None) /hpf 07/05/17 07/05/17 Range/Units 02:27 02:27 WBC (3.8-10.6) k/uL Hgb (11.4-16.0) gm/dL Plt Count (150-450) k/uL Lymphocytes # (1.0-4.8) k/uL PT (9.0-12.0) sec INR (<1.2) APTT 65.4 H (22.0-30.0) sec Sodium 132 L (137-145) mmol/L Potassium 3.2 L (3.5-5.1) mmol/L Chloride 93 L (98-107) mmol/L Carbon Dioxide (22-30) mmol/L BUN 42 H (7-17) mg/dL Creatinine 2.10 H (0.52-1.04) mg/dL Glucose 117 H (74-99) mg/dL Plasma Lactic Acid Stephen (0.7-2.0) mmol/L Calcium 8.2 L (8.4-10.2) mg/dL AST (14-36) U/L Troponin I (0.000-0.034) ng/mL Amylase (30-110) U/L Urine Appearance (Clear) Urine Protein (Negative) Urine Bilirubin (Negative) Ur Leukocyte Esterase (Negative) Urine WBC (0-5) /hpf Ur Squamous Epith Cells (0-4) /hpf Amorphous Sediment (None) /hpf Urine Bacteria (None) /hpf Hyaline Casts (0-2) /lpf Urine Mucus (None) /hpf Thrombosis Risk Factor Assmnt - DVT/VTE Prophylaxis DVT/VTE Prophylaxis: Pharmacologic Prophylaxis ordered - Choose All That Apply Any of the Below Risk Factors Present?: Yes Each Factor Represents 1 point: Varicose veins Other Risk Factors: Yes Each Risk Factor Represents 2 Points: Age 61-74 years Other congenital or acquired thrombophilia - If yes, enter type in comment: No Thrombosis Risk Factor Assessment Total Risk Factor Score: 3 Thrombosis Risk Factor Assessment Level: Moderate Risk Assessment and Plan Assessment: #1 nausea vomiting abdominal pain with possible gastritis from antibiotics. Improved now #2 dizziness could be due to vertigo versus hypotension #3 acute kidney injury with elevated creatinine level most likely prerenal #4 hypovolemic hyponatremia #5 hypokalemia secondary to poor oral intake #6 troponin leak likely due to demand mismatch #7 lactic acidosis secondary to hypotension and decreased tissue perfusion #8 history of hypertension. Currently hypotensive. #9 diabetes type 2 [id number] #10 hypothyroidism Plan: Patient will be continued on telemetry monitoring and was started on heparin drip. Cardiology has been consulted for elevated troponin level. Patient will be continued on IV hydration with normal saline and follow-up renal function. We will hold hydrochlorothiazide and lisinopril due to hypotension and acute kidney injury. We will hold Mobic and continued on Pepcid twice a day. Symptomatic management for nausea and vomiting. We will hold metformin due to creatinine elevation and lactic acidosis. Continue with the sliding scale and follow closely. Patient is improving symptomatically. Further recommendations based on the clinical course. Time with Patient: Greater than 30
[2017-07-06 06:05] LABS: Basophils % (A) 1 %; CH 29.9; CHCM 33.8; Eosinophils # (A) 0.3 k/uL (0-0.7); Eosinophils % (A) 7 %; HCT 35.4 % (34.0-46.0); HGB 11.7 gm/dL (11.4-16.0); Luc # (Auto) 0.11; Luc % (Auto) 3; Lymphocytes # (A) 1.4 k/uL (1.0-4.8); Lymphocytes % (A) 30 %; MCH 29.4 pg (25.0-35.0); MCHC 33.1 g/dL (31.0-37.0); MCV 88.9 fL (80.0-100.0); Mean Platelet Volume 8.3; Monocytes # (A) 0.5 k/uL (0-1.0); Monocytes % (A) 11 %; Neutrophils # (A) 2.3 k/uL (1.3-7.7); Neutrophils % (A) 50 %; RBC 3.98 m/uL (3.80-5.40); RDW 14.6 % (11.5-15.5); WBC 4.6 k/uL (3.8-10.6)
[2017-07-06] MEDS: PANTOPRAZOLE 40 MG TABLET PO SCH (06:05)
[2017-07-06] MEDS: LEVOTHYROXINE 25 MCG TAB PO SCH (06:05)
[2017-07-06 06:25] LABS: Anion Gap 7 mmol/L; Blood Urea Nitrogen 26 mg/dL (7-17); Calcium 8.3 mg/dL (8.4-10.2); Carbon Dioxide 31 mmol/L (22-30); Chloride 99 mmol/L (98-107); Glucose 87 mg/dL (74-99); Non-African American GFR(MDRD) 51 (>60 ml/min/1.73 sqM); Potassium 3.6 mmol/L (3.5-5.1); Sodium 137 mmol/L (137-145)
[2017-07-06] MEDS: CITALOPRAM HYDROBROMIDE 20 MG TAB PO SCH (08:03)
[2017-07-06] MEDS: POTASSIUM CHLORIDE ER 20 MEQ TAB.ER PO SCH (08:03)
[2017-07-06] MEDS: METOPROLOL TARTRATE 50 MG TAB PO SCH (08:03)
[2017-07-06] MEDS: amLODIPine 5 MG TAB PO SCH (08:03)
[2017-07-06] MEDS: ATORVASTATIN 20 MG TAB PO SCH (08:03)
[2017-07-06] MEDS ORDERED: ASPIRIN 81 MG PO SCH (09:00)
[2017-07-06 12:51] VITALS: BP 128/68; PULSE 53; TEMP 96.3
--- NOTE | 2017-07-06 14:30 | P.PN ---
Subjective Progress Note Date: 07/06/17 This is a pleasant 82-year-old female who resides in [place], she is currently visiting with her daughter here. She presents to the hospital with symptoms of dizziness as well as nausea and vomiting. According to the patient for the past 3 or 4 days she has noticed herself to be extremely dizzy, she states that she developed an upper respiratory infection and felt quite stuffy in her sinuses as well as her ears. She did go to see her primary doctor, who felt that the dizziness may be secondary to sinus infection and she was initiated on antibiotics. Patient also was given the flu shot in her office. Patient does state that she felt a pressure sensation in her ear. When the patient's gets dizzy she states that she feels as though everything is spinning , and dizziness worsens when she turns her head too quickly. She also states that at the time of her dizziness, she feels that her heart is pounding extremely fast. Patient went home following this, she states that she ate some peach cobbler and shortly thereafter went to lie down, just prior to lying down patient became extremely nauseated and then had several episodes of vomiting. For this reason she came to the emergency room for further evaluation. Patient does state that approximately one week ago she had an episode of an ache in her chest which lasted seconds and dissipated. She does admit to having a cardiac catheterization performed in the past, in [place], she states that this was several years ago, she was reported at that time to have normal coronary arteries with a thickened heart muscle. Patient also states that she's lost a significant amount of weight over the past couple of weeks since she was started on metformin. EKG performed on admission here shows a normal sinus rhythm with occasional PVC and nonspecific ST-T wave changes. Inferior Q waves noted. At scan of the abdomen and pelvis suggest difficulty to exclude a mucosal lesion, colitis. Chest x-ray does not reveal any acute cardiopulmonary process. White blood cell count on admission 5.1, 3.4 this morning. Platelet count 198, 141 this morning. Potassium on arrival 3.0, 3.2 this morning. BUN on arrival 42 creatinine 1.7, 42 and 2.0 this morning. Troponins 0.06, 0.038, 0.039. At the time of my examination this morning, patient denies any further nausea, no episodes of dizziness no chest discomfort. Blood pressure this morning 113/40 with a heart rate in the 50s. 07/06/2017 Patient seen and examined this morning, blood pressure much improved, 128/68, heart rate in the 50s to 60s. CBC normal. Potassium 3.6, BUN 26, creatinine 1.0. Echocardiogram with Doppler study reveals normal left ventricular systolic function. Patient feels well today, anticipating discharge home. Objective - Vital Signs Vital signs: Vital Signs Temp 96.3 F L 07/06/17 12:00 Pulse 53 L 07/06/17 12:00 Resp 18 07/06/17 12:00 BP 128/68 07/06/17 12:00 Pulse Ox 93 L 07/06/17 12:00 Intake & Output 07/05/17 07/06/17 07/06/17 18:59 06:59 18:59 Intake Total 500 100 200 Output Total 1200 1100 Balance -700 -1000 200 Weight 79.6 kg Intake: Intake, IV Titration 500 100 Amount cefTRIAXone 1,000 mg In 500 100 Sodium Chloride 0.9% 50 ml @ 100 mls/hr IVPB Q24H [facility] Rx#:[id number] Oral 200 Output: Urine 1200 1100 Other: Voiding Method Toilet Toilet Toilet # Voids 3 2 # Bowel Movements 0 - Exam PHYSICAL EXAMINATION: HEENT: Head is atraumatic, normocephalic. Pupils equal, round. Neck is supple. There is no elevated jugular venous pressure. HEART EXAMINATION: Heart S1 and S2 with systolic murmur is heard. CHEST EXAMINATION: Lungs are clear to auscultation and precussion. No chest wall tenderness is noted on palpation or with deep breathing. ABDOMEN: Soft, nontender. Bowel sounds are heard. No organomegaly noted. EXTREMITIES: 2+ peripheral pulses with no evidence of peripheral edema and no calf tenderness noted. NEUROLOGIC patient is awake, alert and oriented -3. . - Labs CBC & Chem 7: 07/06/17 05:39 07/06/17 05:39 Labs: Abnormal Lab Results - Last 24 Hours (Table) 07/06/17 07/06/17 Range/Units 05:39 05:39 Plt Count 140 L (150-450) k/uL Carbon Dioxide 31 H (22-30) mmol/L BUN 26 H (7-17) mg/dL Calcium 8.3 L (8.4-10.2) mg/dL Microbiology - Last 24 Hours (Table) 07/05/17 09:03 Urine Culture - Final Urine,Clean Catch 07/04/17 16:25 Blood Culture - Preliminary Blood No Growth after 24 hours Assessment and Plan Plan: Assessment and plan #1 symptoms of dizziness, suggestive of vertigo. Positive for sinus infection on antibiotics. #2 nausea and vomiting, could be secondary to Augmentin. CT of the abdomen nonspecific findings. #3 abnormal BUN and creatinine, likely secondary to dehydration. Creatinine 2.1. She did receive fluid bolus as well as IV fluids at a lower. #4 hypokalemia, likely secondary to nausea and vomiting. #5 abnormal troponins, likely secondary to hypotension and lactic acidosis. #6 elevated lactic acid, likely secondary to hypotension and hypoperfusion. #7 hypotension on admission, likely secondary to dehydration. Blood pressure this morning 114/60 with a heart rate in the 50s. #8 hypothyroidism Plan Patient may be able to be discharged home today from cardiology's perspective. She has been advised to follow-up with her primary care and her heart doctor in [place]. DNP note has been reviewed, I agree with a documented findings and plan of care. Patient was seen and examined.
--- NOTE | 2017-07-07 00:30 | P.DS ---
Providers Date of admission: 07/04/17 19:31 Expected date of discharge: 07/06/17 Attending physician: Luca Fischer Consults: 07/04/17 19:31 Consult Physician Urgent Consulting Provider: Rich Melendez Consult Reason/Comments: cp Do you want consulting provider notified?: Yes Primary care physician: [facility] Course: #1 nausea vomiting abdominal pain with possible gastritis. Improved now #2 dizziness could be due to vertigo versus hypotension. Improved with hydration. #3 acute kidney injury with elevated creatinine level most likely prerenal. Resolved #4 hypovolemic hyponatremia #5 hypokalemia secondary to poor oral intake #6 troponin leak likely due to demand mismatch. 2-D echo was done. Showed normal EF #7 lactic acidosis secondary to hypotension and decreased tissue perfusion #8 history of hypertension. Currently hypotensive. #9 diabetes type 2 [id number] #10 hypothyroidism #11 acute sinusitis patient was started on Augmentin by her PCP. 82-year-old white female with a known history of hypertension, diabetes type 2 and hypothyroidism presents with a complaint of some abdominal pain nausea vomiting and dizziness. She states that she's been dizzy for the past 4+ days. She has also had some bilateral lower abdominal pain. She saw her primary doctor due to right ear fullness and was prescribed Augmentin. She does complain of some slight pressure and buzzing type sensation from her right ear. She describes the dizziness as a spinning or vertiginous type sensation. She then had a flu shot yesterday at her primary care physician's office and she then developed multiple episodes of nausea and vomiting as well. She relates intermittent chest pain and shortness of breath over the past several days as well. She states that she's lost approximately 11 pounds over the past week. She denies any fevers or chills. There has not been any diarrhea. She denies any previous similar incidents. Patient had CT abdomen and pelvis showed nonspecific mucosal thickness. Chest x-ray showed no acute coronary process. Patient was found to have electrolyte abnormalities. Troponin leak at 0.038 Patient was continued on telemetry monitoring and was started on heparin drip. Cardiology has been consulted for elevated troponin level. 2-D echo was done showed normal ejection fraction. Cardiology recommended no further workup. Patient was continued on IV hydration with normal saline and follow-up renal function. Renal function improved and AK I resolved. Blood pressure medications dose have been reduced due to hypotension.. Patient was recommended to hold Mobic. continued on Pepcid twice a day. Symptomatic management for nausea and vomiting. Patient is tolerating by mouth diet. Lactic acidosis resolved. Patient is clinically much improved and is stable to be discharged home. . Discharge physical examination was done Patient Condition at Discharge: Fair Plan - Discharge Summary New Discharge Prescriptions: New Metoprolol Tartrate [Lopressor] 50 mg PO BID #60 tab Continue metFORMIN HCL [Glucophage] 500 mg PO DAILY Potassium Chloride ER [K-Dur 20] 20 meq PO DAILY Pantoprazole Sodium [Protonix] 40 mg PO DAILY Meloxicam [Mobic] 15 mg PO DAILY amLODIPine [Norvasc] 5 mg PO DAILY Simvastatin [Zocor] 40 mg PO HS Hydrochlorothiazide 12.5 mg PO DAILY Citalopram Hydrobromide [CeleXA] 20 mg PO DAILY Levothyroxine Sodium [Synthroid] 25 mcg PO DAILY ALPRAZolam [Xanax] 0.25 mg PO HS Amoxic-Pot Clav 875-125Mg [Augmentin 875-125] 1 tab PO BID Changed Lisinopril 20 mg PO DAILY #30 tablet Discontinued Metoprolol Tartrate [Lopressor] 100 mg PO BID Discharge Medication List ALPRAZolam [Xanax] 0.25 mg PO HS 07/04/17 [History] Amoxic-Pot Clav 875-125Mg [Augmentin 875-125] 1 tab PO BID 07/04/17 [History] Citalopram Hydrobromide [CeleXA] 20 mg PO DAILY 07/04/17 [History] Hydrochlorothiazide 12.5 mg PO DAILY 07/04/17 [History] Levothyroxine Sodium [Synthroid] 25 mcg PO DAILY 07/04/17 [History] Meloxicam [Mobic] 15 mg PO DAILY 07/04/17 [History] Pantoprazole Sodium [Protonix] 40 mg PO DAILY 07/04/17 [History] Potassium Chloride ER [K-Dur 20] 20 meq PO DAILY 07/04/17 [History] Simvastatin [Zocor] 40 mg PO HS 07/04/17 [History] amLODIPine [Norvasc] 5 mg PO DAILY 07/04/17 [History] metFORMIN HCL [Glucophage] 500 mg PO DAILY 07/04/17 [History] Lisinopril 20 mg PO DAILY #30 tablet 07/06/17 [Rx] Metoprolol Tartrate [Lopressor] 50 mg PO BID #60 tab 07/06/17 [Rx] Follow up Appointment(s)/Referral(s): [facility], [NON-STAFF] - Thomas Corona DO [Primary Care Provider] - 1 Week (Keep previously scheduled appointment) Discharge Disposition: HOME SELF-CARE
== END 2017-07-06 16:35 | disposition home health service (06) | DRG 392 ==
LOC: EC 15:28 → 6SEL 19:31
PROVIDERS: ADMIT Hospitalist; ATTEND Hospitalist
DX: K29.70 Gastritis, unspecified, without bleeding (principal); N17.9 Acute kidney failure, unspecified; E87.2 Acidosis; E87.1 Hypo-osmolality and hyponatremia; I95.9 Hypotension, unspecified; E86.0 Dehydration; E11.9 Type 2 diabetes mellitus without complications; R42 Dizziness and giddiness; E03.9 Hypothyroidism, unspecified; I10 Essential (primary) hypertension; J01.90 Acute sinusitis, unspecified; E78.5 Hyperlipidemia, unspecified; E87.6 Hypokalemia; H40.9 Unspecified glaucoma; I49.3 Ventricular premature depolarization; R74.8 Abnormal levels of other serum enzymes; Z79.84 Long term (current) use of oral hypoglycemic drugs; Z79.899 Other long term (current) drug therapy
CPT/HCPCS: 36415; 71020; 74176; 80048; 80053; 80061; 81001; 82150; 82550; 82553; 83605; 83690; 84484; 85025; 85610; 85730; 87040; 87086; 93005; 93306; 96361; 96365; 96375; 96376; 99285